=== PATIENT | female | born 1965 | race Caucasian/White ===

== ENCOUNTER 2021-04-27 08:21 | Day surgery (SDC) | payer OTHER ==
[2021-04-27] MEDS ORDERED: Decadron 4 MG INJ IV ONE (08:22)
[2021-04-27] MEDS ORDERED: LIDOCAINE HCL 2% 100 MG/5 ML IJ ONE (08:22)
[2021-04-27] MEDS ORDERED: DIPRIVAN 200 MG/20 ML IV ONE (09:57)
--- NOTE | 2021-04-27 11:27 | XRAY ---
Indication: Right C2-C4 MBB. Intraoperative fluoroscopy provided for 9 seconds. 2 digital spot images submitted for interpretation demonstrates posterior needle tips projecting over the expected right C2-C4 nerve roots. Correlate with intraoperative findings/report.
--- NOTE | 2021-04-27 13:01 | XRAY ---
9 seconds of fluoroscopy was used in surgery for right C2-C3 and C3-C4 MBB.
[2021-04-27] MEDS ORDERED: Lactated Ringers 1,000 ML IV ONE (15:39)
== END 2021-04-27 10:28 | disposition home or self-care (01) ==
LOC: SDC-PAIN 08:21
PROVIDERS: ATTEND Psychiatry & Neurology Pain Medicine
DX: M47.812 Spondylosis without myelopathy or radiculopathy, cervical region (principal); F41.9 Anxiety disorder, unspecified; F32.9 Major depressive disorder, single episode, unspecified; M19.90 Unspecified osteoarthritis, unspecified site; G43.909 Migraine, unspecified, not intractable, without status migrainosus; E11.9 Type 2 diabetes mellitus without complications; E78.5 Hyperlipidemia, unspecified; J44.9 Chronic obstructive pulmonary disease, unspecified; Z79.899 Other long term (current) drug therapy
CPT/HCPCS: 64490; 64491; 72040; 77002; J1100; J2704

== ENCOUNTER 2021-06-29 07:36 | Day surgery (SDC) | payer OTHER ==
[2021-06-29] MEDS ORDERED: Decadron 4 MG INJ IV ONE (07:37)
[2021-06-29] MEDS ORDERED: LIDOCAINE HCL 2% 100 MG/5 ML IJ ONE (07:37)
[2021-06-29] MEDS ORDERED: DIPRIVAN 200 MG/20 ML IV ONE (09:07)
--- NOTE | 2021-06-29 10:20 | XRAY ---
Indication: Left C2-C4 MBB. Intraoperative fluoroscopy provided for 44 seconds. 2 digital spot image submitted for interpretation demonstrates posterior needle tips projecting over the expected left C2-C4 nerve roots. Correlate with intraoperative findings/report.
--- NOTE | 2021-06-29 12:43 | XRAY ---
44 seconds of fluoroscopy was used in surgery for a left C2-C4 MBB.
[2021-06-29] MEDS ORDERED: Lactated Ringers 1,000 ML IV ONE (16:33)
== END 2021-06-29 09:45 | disposition home or self-care (01) ==
LOC: SDC-PAIN 07:36
PROVIDERS: ATTEND Psychiatry & Neurology Pain Medicine
DX: M47.812 Spondylosis without myelopathy or radiculopathy, cervical region (principal); E11.9 Type 2 diabetes mellitus without complications; Z79.899 Other long term (current) drug therapy
CPT/HCPCS: 72040; 77002; 82947; J1100; J2704

== ENCOUNTER 2021-09-14 06:44 | Day surgery (SDC) | payer OTHER ==
[2021-09-14] MEDS ORDERED: LIDOCAINE HCL 2% 100 MG/5 ML IJ ONE (06:45)
[2021-09-14] MEDS ORDERED: Depo-Medrol 40 MG/ML IM ONE (06:45)
[2021-09-14] MEDS ORDERED: DIPRIVAN 200 MG/20 ML IV ONE (08:13)
--- NOTE | 2021-09-14 10:19 | XRAY ---
Indication: Bilateral L4-S1 MBB. Intraoperative fluoroscopy provided for 15 seconds. Single digital spot image submitted for interpretation demonstrates posterior needle tips projecting over the expected left and right L4-S1 nerve roots. Correlate with intraoperative findings/report.
--- NOTE | 2021-09-14 10:33 | XRAY ---
15 seconds fluoroscopy time in surgery for bilateral L4-S1 MBB.
[2021-09-14] MEDS ORDERED: Lactated Ringers 1,000 ML IV ONE (17:23)
== END 2021-09-14 08:35 | disposition home or self-care (01) ==
LOC: SDC-PAIN 06:44
PROVIDERS: ATTEND Psychiatry & Neurology Pain Medicine
DX: M47.816 Spondylosis without myelopathy or radiculopathy, lumbar region (principal); F41.9 Anxiety disorder, unspecified; F32.9 Major depressive disorder, single episode, unspecified; I51.9 Heart disease, unspecified; G43.909 Migraine, unspecified, not intractable, without status migrainosus; E11.9 Type 2 diabetes mellitus without complications; G25.81 Restless legs syndrome; E78.5 Hyperlipidemia, unspecified; K21.9 Gastro-esophageal reflux disease without esophagitis; M19.90 Unspecified osteoarthritis, unspecified site; J44.9 Chronic obstructive pulmonary disease, unspecified; J43.8 Other emphysema; Z79.01 Long term (current) use of anticoagulants; Z79.899 Other long term (current) drug therapy
CPT/HCPCS: 64493; 64494; 72020; 77002; 82947; J1030; J2704

== ENCOUNTER 2021-11-30 07:00 | Day surgery (SDC) | payer OTHER ==
[2021-11-30] MEDS ORDERED: BUPIVACAINE 0.5% VIAL IJ ONE (07:01)
[2021-11-30] MEDS ORDERED: Depo-Medrol 40 MG/ML IM ONE (07:01)
[2021-11-30] MEDS ORDERED: DIPRIVAN 200 MG/20 ML IV ONE (08:38)
--- NOTE | 2021-11-30 09:51 | XRAY ---
Indication: Bilateral L4-S1 MBB. Intraoperative fluoroscopy provided for 22 seconds. Single digital spot image submitted for interpretation demonstrates posterior needle tips projecting over the expected left and right L4-S1 nerve roots. Correlate with intraoperative findings/report.
[2021-11-30] MEDS ORDERED: Lactated Ringers 1,000 ML IV ONE (10:01)
--- NOTE | 2021-11-30 11:07 | XRAY ---
22 seconds of fluoroscopy was used in surgery for a bilateral L4-S1 MBB.
== END 2021-11-30 09:06 | disposition home or self-care (01) ==
LOC: SDC-PAIN 07:00
PROVIDERS: ATTEND Psychiatry & Neurology Pain Medicine
DX: M47.816 Spondylosis without myelopathy or radiculopathy, lumbar region (principal); E11.9 Type 2 diabetes mellitus without complications; Z79.899 Other long term (current) drug therapy
CPT/HCPCS: 64483; 64484; 72020; 77002; 82947; J1030; J2704

== ENCOUNTER 2022-01-11 07:44 | Day surgery (SDC) | payer OTHER ==
[2022-01-11] MEDS ORDERED: BUPIVACAINE 0.5% VIAL IJ ONE (07:45)
[2022-01-11] MEDS ORDERED: Decadron 4 MG INJ IV ONE (07:45)
[2022-01-11] MEDS ORDERED: Lactated Ringers 1,000 ML IV ONE (09:02)
[2022-01-11] MEDS ORDERED: DIPRIVAN 200 MG/20 ML IV ONE (09:14)
--- NOTE | 2022-01-11 10:22 | XRAY ---
Indication: Left C2-C4 MBB. Intraoperative fluoroscopy provided for 36 seconds. 2 digital spot images submitted for interpretation demonstrates posterior needle tips projecting over the expected left C2-C4 nerve root. Correlate with intraoperative findings/report.
--- NOTE | 2022-01-11 10:33 | XRAY ---
36 seconds fluoroscopy time in surgery for left C2-C4 MBB.
== END 2022-01-11 09:45 | disposition home or self-care (01) ==
LOC: SDC-PAIN 07:44
PROVIDERS: ATTEND Psychiatry & Neurology Pain Medicine
DX: M47.812 Spondylosis without myelopathy or radiculopathy, cervical region (principal); E11.9 Type 2 diabetes mellitus without complications; Z79.899 Other long term (current) drug therapy
CPT/HCPCS: 64490; 64491; 72040; 77002; 82947; J1100; J2704

== ENCOUNTER 2022-04-12 15:18 | Observation (INO) | payer OTHER ==
[2022-04-12] MEDS ORDERED: DUONEB 0.5-3 MG/3 ml Neb IH ONE ×2 (15:22→15:36)
[2022-04-12] MEDS ORDERED: solu-MEDROL 125 MG, Sterile H2O 10 ml 2 ML IV ONE ×2 (15:22)
[2022-04-12] MEDS ORDERED: solu-MEDROL ONE (15:30)
[2022-04-12] MEDS ORDERED: Sterile H2O 10 ml IJ ONE (15:30)
[2022-04-12] MEDS: Sodium Chloride 0.9% 1000 ML 1,000 ML IV SCH (15:33)
--- NOTE | 2022-04-12 15:44 | ERPHSYRPT ---
- History of Present Illness Time Seen by Provider: 04/12/22 15:39 Source: patient Physician History: Patient is a 56-year-old white female who has a long history of COPD who is followed by Dr. Angelica puente. She has recently noticed extreme fatigue some peripheral edema increased oxygen requirement and that she normally only uses O2 at night with her CPAP but has been using it during the day as well. She also has noted increased cough she has had she chills fever and sweats she has had her COVID-vaccine she only takes rare nebulizer treatments. She has taken none in the past month or so.While at Dr. Dominguez's office today she initially measured 82% on room air O2 sat she was being weighed when she had a syncopal episode. Timing/Duration: today Activities at Onset: none Severity of Dyspnea-Max: severe Severity of Dyspnea-Current: severe Possible Cause: frequent episodes Modifying Factors: Improves With: albuterol nebulizer, coughing, oxygen Associated Symptoms: cough, edema, fever, wheezing, ankle swelling, chills, leg swelling Allergies/Adverse Reactions: bee venom protein (honey bee) Allergy (Verified 04/12/22 15:42) benztropine [From Cogentin] Allergy (Verified 04/12/22 15:42) Home Medications: Albuterol Common Canister [Ventolin Common Canister] 2 puff IH Q6HPRN PRN 04/12/22 [History] Apixaban [Eliquis 5 mg Tablet] 5 mg PO BID 04/12/22 [History] Diphenoxylate HCl/Atropine [Lomotil] 1 udtab PO Q4HPRN PRN 04/12/22 [Hi story] Ertugliflozin Pidolate [Steglatro] 5 mg PO DAILY 04/12/22 [History] Fluoxetine HCl [Prozac] 10 mg PO DAILY 04/12/22 [History] Fluoxetine HCl [Prozac] 40 mg PO DAILY 04/12/22 [History] Fluticasone Propionate [Flonase NASAL] 1 spray NS DAILY 04/12/22 [History] Fluticasone/Umeclidin/Vilanter [Trelegy Ellipta 100-62.5-25] 1 puff IH DAILY 04/12/22 [History] Fluticasone/Umeclidin/Vilanter [Trelegy Ellipta 100-62.5-25] 1 puff IH DAILY 04/12/22 [History] Gabapentin [Neurontin] 600 mg PO TID 04/12/22 [History] Glipizide [Glipizide ER] 10 mg PO DAILY 04/12/22 [History] Hydroxyzine HCl 25 mg [Atarax 25 mg] 25 - 50 mg PO Q6HPRN PRN 04/12/22 [History] Insulin Glargine [Lantus Insulin] 15 unit SQ HS 04/12/22 [History] Loratadine 10 mg [Claritin 10 mg] 10 mg PO DAILY 04/12/22 [History] Lumateperone Tosylate [Caplyta] 42 mg PO DAILY 04/12/22 [History] Oxycodone / APAP 10/325 mg [Oxycodone-Acetaminophen 10-325] 1 tab PO BID 04/12/22 [History] Ropinirole HCl 3 mg PO HS 04/12/22 [History] Tizanidine HCl 4 mg [Zanaflex 4 MG] 4 mg PO DAILY 04/12/22 [History] Trazodone HCl 150 mg PO HS 04/12/22 [History] atenoloL [Atenolol] 25 mg PO DAILY 04/12/22 [History] - Review of Systems Constitutional: Fever, Chills, Fatigue, Lethargy Eyes: No Symptoms Ears, Nose, & Throat: No Symptoms Respiratory: Cough, Dyspnea, Dyspnea on Exertion (CASAS), Wheezing Cardiac: Edema, No Chest Pain, No Syncope Abdominal/Gastrointestinal: No Abdominal Pain, No Nausea, No Vomiting, No Diarrhea Genitourinary Symptoms: No Dysuria Musculoskeletal: No Back Pain, No Neck Pain Skin: No Rash Neurological: No Dizziness, No Focal Weakness, No Sensory Changes Psychological: No Symptoms Endocrine: No Symptoms All Other Systems: Reviewed and Negative - Nursing Vital Signs Nursing Vital Signs: Initial Vital Signs Temperature 98.6 F 04/12/22 15:20 Pulse Rate 80 04/12/22 15:20 Respiratory Rate 24 04/12/22 15:20 Blood Pressure 112/73 04/12/22 15:20 O2 Sat by Pulse Oximetry 90 L 04/12/22 15:20 Pain Scale Pain Intensity 0 - Physical Exam General Appearance: moderate distress, alert Eye Exam: PERRL/EOMI Ears, Nose, Throat Exam: normal ENT inspection Neck Exam: normal inspection, supple Respiratory Exam: respiratory distress, diminished breath sounds, crackles/rales, rhonchi, wheezing Cardiovascular/Chest Exam: normal heart sounds, regular rate/rhythm Abdominal/Gastrointestinal Exam: soft, No tenderness, No distention, No mass Extremity Exam: non-tender, normal range of motion, normal inspection, no calf tenderness, no pedal edema Neurologic Exam: alert, oriented x 3, cooperative, drum attendant II-XII nml as tested, sensation nml, No motor deficits Skin Exam: normal color, warm, No dry SpO2 Interpretation: hypoxic, O2 applied O2 Delivery: Nasal Cannula - Course Nursing assessment & vital signs reviewed: Yes EKG Interpreted by Me: RATE (80), Sinus Rhythm, Left [place] Deviation, NORMAL INTERVALS, NORMAL QRS, Non-specific ST Changes, Other (Poor R wave progression) - Radiology Exams Chest X-ray Interpretation: Interpreted by me, Pneumonia (Right lower lobe) Ordered Tests: Active Orders 24 hr Category Date Time Status EKG-ER Only STAT Care 04/12/22 15:22 Active IV Insertion STAT Care 04/12/22 15:22 Active Oxygen-ED Only Nasal Cannula 4 lpm Care 04/12/22 15:22 Active CHEST 1 VIEW (PORTABLE) Stat Exams 04/12/22 15:23 Completed BLOOD CULTURE Stat Lab 04/12/22 15:55 Received CBC W DIFF Stat Lab 04/12/22 15:55 Completed CMP Stat Lab 04/12/22 15:55 Completed D-DIMER QUANTITATIVE Stat Lab 04/12/22 15:55 Completed Lactic Acid Stat Lab 04/12/22 15:39 Completed MAGNESIUM Stat Lab 04/12/22 15:55 Completed NT PRO BNP Stat Lab 04/12/22 15:55 Completed PROTIME WITH INR Stat Lab 04/12/22 15:55 Completed PTT Stat Lab 04/12/22 15:55 Completed TROPONIN Q3H Lab 04/12/22 15:55 Completed TROPONIN Q3H Lab 04/12/22 18:30 Ordered TROPONIN Q3H Lab 04/12/22 21:30 Ordered TROPONIN Q3H Lab 04/13/22 00:30 Ordered TROPONIN Q3H Lab 04/13/22 03:30 Ordered UA W/RFX CULTURE Stat Lab 04/12/22 17:09 Results Respiratory Therapy Assessment DAILY RT 04/12/22 16:02 Active Medication Summary Generic Name Dose Route Start Last Admin Trade Name Freramo PRN Reason Stop Dose Admin Albuterol/Ipratropium 3 ml 04/12/22 15:57 04/12/22 15:37 Ipratropium/Albuterol Sulfate 3 Ml Ampul.Neb IH 05/12/22 15:56 3 ml Q4HPRN PRN Administration SHORTNESS OF BREATH/WHEEZING Sodium Chloride 1,000 mls @ 100 mls/hr 04/12/22 15:30 04/12/22 15:33 Sodium Chloride 0.9% 1000 Ml IV 05/12/22 15:29 100 mls/hr .Q10H CLIFF Administration Discontinued Medications Generic Name Dose Route Start Last Admin Trade Name Freq PRN Reason Stop Dose Admin Albuterol/Ipratropium 3 ml 04/12/22 15:22 04/12/22 16:59 Ipratropium/Albuterol Sulfate 3 Ml Ampul.Neb IH 04/12/22 15:23 Not Given STAT ONE Albuterol/Ipratropium Confirm 04/12/22 15:36 Ipratropium/Albuterol Sulfate 3 Ml Ampul.Neb Administered 04/12/22 15:37 Dose 3 ml IH .STK-MED ONE Methylprednisolone Sodium 0 mg 04/12/22 15:22 04/12/22 15:33 Succinate 125 mg/ Sterile IV 04/12/22 15:23 125 mg Water 2 ml STAT ONE Administration Methylprednisolone Sodium Succinate Confirm 04/12/22 15:30 Methylprednis Sod Succ 125 Mg/2 Ml Vial Administered 04/12/22 15:31 Dose 125 mg .ROUTE .STK-MED ONE Sterile Water Confirm 04/12/22 15:30 Water For Injection,Sterile 10 Ml Vial Administered 04/12/22 15:31 Dose 10 ml IJ .STK-MED ONE Lab/Rad Data: Laboratory Result Diagrams 04/12/22 15:55 04/12/22 15:55 Laboratory Results 04/12/22 04/12/22 04/12/22 Range/Units 17:09 15:55 15:55 WBC (4.0-10.5) x10^3/uL RBC (4.1-5.4) x10^6/uL Hgb (12.0-16.0) g/dL Hct (35-47) % MCV (78-100) fL MCH (26-32) pg MCHC (32-36) g/dL RDW (11.5-14.0) % Plt Count (150-450) x10^3/uL MPV (7.5-11.0) fL Gran % (36.0-66.0) % Immature Gran % (Auto) (0.00-0.4) % Nucleat RBC Rel Count (0.00-0.1) % Eos # (Auto) (0-0.5) x10^3/uL Immature Gran # (Auto) (0.00-0.03) x10^3u/L Absolute Lymphs (auto) (1.0-4.6) x10^3/uL Absolute Monos (auto) (0.0-1.3) x10^3/uL Absolute Nucleated RBC (0.00-0.01) x10^3u/L Lymphocytes % (24.0-44.0) % Monocytes % (0.0-12.0) % Eosinophils % (0.00-5.0) % Basophils % (0.0-0.4) % Absolute Granulocytes (1.4-6.9) x10^3/uL Basophils # (0-0.4) x10^3/uL PT 10.4 (9.4-12.5) SECONDS INR 0.98 (0.8-3.0) APTT 27.9 (25.1-36.5) SECONDS D-Dimer 0.37 (0.0-0.50) ng/mL Sodium (137-145) mmol/L Potassium (3.5-5.1) mmol/L Chloride (98-107) mmol/L Carbon Dioxide (22-30) mmol/L Anion Gap (5-15) MEQ/L BUN (7-17) mg/dL Creatinine (0.52-1.04) mg/dL Estimated GFR ML/MIN Glucose (74-106) mg/dL Lactic Acid (0.4-2.0) Calcium (8.4-10.2) mg/dL Magnesium (1.6-2.3) mg/dL Total Bilirubin (0.2-1.3) mg/dL AST (14-36) U/L ALT (0-35) U/L Alkaline Phosphatase (38-126) U/L Troponin I < 0.012 (0.000-0.034) ng/mL NT-Pro-B Natriuret Pep (0-900) pg/mL Serum Total Protein (6.3-8.2) g/dL Albumin (3.5-5.0) g/dL Urinalys Dipstick Clnc Pending Urine Color YELLOW (YELLOW) Urine Appearance CLEAR (CLEAR) Urine pH 6.0 (5-6) Ur Specific [place] 1.020 (1.005-1.025) POC Urine Protein Conf NEGATIVE (Negative) Urine Ketones TRACE (NEGATIVE) Urine Nitrite NEGATIVE (NEGATIVE) Urine Bilirubin NEGATIVE (NEGATIVE) Urine Urobilinogen 0.2 (0-1) mg/dL Urine Leukocytes NEGATIVE (NEGATIVE) Urine WBC (Auto) NONE (0-5) /HPF U Epithel Cells (Auto) RARE (FEW) /HPF Urine RBC NEGATIVE (0-5) Juan/ul Ur Culture Indicated? NO Urine Glucose >=1000 (NEGATIVE) mg/dL Influenza Type A Ag (NEGATIVE) Influenza Type B Ag (NEGATIVE) RSV (PCR) (Negative) SARS-CoV-2 (PCR) (NEGATIVE) 04/12/22 04/12/22 04/12/22 Range/Units 15:55 15:55 15:50 WBC 14.1 H (4.0-10.5) x10^3/uL RBC 5.52 H (4.1-5.4) x10^6/uL Hgb 17.3 H (12.0-16.0) g/dL Hct 52.9 H (35-47) % MCV 95.8 (78-100) fL MCH 31.3 (26-32) pg MCHC 32.7 (32-36) g/dL RDW 13.6 (11.5-14.0) % Plt Count 225 (150-450) x10^3/uL MPV 9.6 (7.5-11.0) fL Gran % 68.3 H (36.0-66.0) % Immature Gran % (Auto) 0.4 (0.00-0.4) % Nucleat RBC Rel Count 0.0 (0.00-0.1) % Eos # (Auto) 0.17 (0-0.5) x10^3/uL Immature Gran # (Auto) 0.06 H (0.00-0.03) x10^3u/L Absolute Lymphs (auto) 3.07 (1.0-4.6) x10^3/uL Absolute Monos (auto) 1.10 (0.0-1.3) x10^3/uL Absolute Nucleated RBC 0.00 (0.00-0.01) x10^3u/L Lymphocytes % 21.8 L (24.0-44.0) % Monocytes % 7.8 (0.0-12.0) % Eosinophils % 1.2 (0.00-5.0) % Basophils % 0.5 (0.0-0.4) % Absolute Granulocytes 9.61 H (1.4-6.9) x10^3/uL Basophils # 0.07 (0-0.4) x10^3/uL PT (9.4-12.5) SECONDS INR (0.8-3.0) APTT (25.1-36.5) SECONDS D-Dimer (0.0-0.50) ng/mL Sodium 138 (137-145) mmol/L Potassium 4.0 (3.5-5.1) mmol/L Chloride 103 (98-107) mmol/L Carbon Dioxide 28 (22-30) mmol/L Anion Gap 10.8 (5-15) MEQ/L BUN 12 (7-17) mg/dL Creatinine 0.64 (0.52-1.04) mg/dL Estimated GFR > 60.0 ML/MIN Glucose 102 (74-106) mg/dL Lactic Acid (0.4-2.0) Calcium 9.2 (8.4-10.2) mg/dL Magnesium 2.1 (1.6-2.3) mg/dL Total Bilirubin 0.50 (0.2-1.3) mg/dL AST 18 (14-36) U/L ALT 11 (0-35) U/L Alkaline Phosphatase 75 (38-126) U/L Troponin I (0.000-0.034) ng/mL NT-Pro-B Natriuret Pep 67.5 (0-900) pg/mL Serum Total Protein 6.8 (6.3-8.2) g/dL Albumin 3.8 (3.5-5.0) g/dL Urinalys Dipstick Clnc Urine Color (YELLOW) Urine Appearance (CLEAR) Urine pH (5-6) Ur Specific [place] (1.005-1.025) POC Urine Protein Conf (Negative) Urine Ketones (NEGATIVE) Urine Nitrite (NEGATIVE) Urine Bilirubin (NEGATIVE) Urine Urobilinogen (0-1) mg/dL Urine Leukocytes (NEGATIVE) Urine WBC (Auto) (0-5) /HPF U Epithel Cells (Auto) (FEW) /HPF Urine RBC (0-5) Juan/ul Ur Culture Indicated? Urine Glucose (NEGATIVE) mg/dL Influenza Type A Ag NEGATIVE (NEGATIVE) Influenza Type B Ag NEGATIVE (NEGATIVE) RSV (PCR) NEGATIVE (Negative) SARS-CoV-2 (PCR) NEGATIVE (NEGATIVE) 04/12/22 Range/Units 15:39 WBC (4.0-10.5) x10^3/uL RBC (4.1-5.4) x10^6/uL Hgb (12.0-16.0) g/dL Hct (35-47) % MCV (78-100) fL MCH (26-32) pg MCHC (32-36) g/dL RDW (11.5-14.0) % Plt Count (150-450) x10^3/uL MPV (7.5-11.0) fL Gran % (36.0-66.0) % Immature Gran % (Auto) (0.00-0.4) % Nucleat RBC Rel Count (0.00-0.1) % Eos # (Auto) (0-0.5) x10^3/uL Immature Gran # (Auto) (0.00-0.03) x10^3u/L Absolute Lymphs (auto) (1.0-4.6) x10^3/uL Absolute Monos (auto) (0.0-1.3) x10^3/uL Absolute Nucleated RBC (0.00-0.01) x10^3u/L Lymphocytes % (24.0-44.0) % Monocytes % (0.0-12.0) % Eosinophils % (0.00-5.0) % Basophils % (0.0-0.4) % Absolute Granulocytes (1.4-6.9) x10^3/uL Basophils # (0-0.4) x10^3/uL PT (9.4-12.5) SECONDS INR (0.8-3.0) APTT (25.1-36.5) SECONDS D-Dimer (0.0-0.50) ng/mL Sodium (137-145) mmol/L Potassium (3.5-5.1) mmol/L Chloride (98-107) mmol/L Carbon Dioxide (22-30) mmol/L Anion Gap (5-15) MEQ/L BUN (7-17) mg/dL Creatinine (0.52-1.04) mg/dL Estimated GFR ML/MIN Glucose (74-106) mg/dL Lactic Acid 0.8 (0.4-2.0) Calcium (8.4-10.2) mg/dL Magnesium (1.6-2.3) mg/dL Total Bilirubin (0.2-1.3) mg/dL AST (14-36) U/L ALT (0-35) U/L Alkaline Phosphatase (38-126) U/L Troponin I (0.000-0.034) ng/mL NT-Pro-B Natriuret Pep (0-900) pg/mL Serum Total Protein (6.3-8.2) g/dL Albumin (3.5-5.0) g/dL Urinalys Dipstick Clnc Urine Color (YELLOW) Urine Appearance (CLEAR) Urine pH (5-6) Ur Specific [place] (1.005-1.025) POC Urine Protein Conf (Negative) Urine Ketones (NEGATIVE) Urine Nitrite (NEGATIVE) Urine Bilirubin (NEGATIVE) Urine Urobilinogen (0-1) mg/dL Urine Leukocytes (NEGATIVE) Urine WBC (Auto) (0-5) /HPF U Epithel Cells (Auto) (FEW) /HPF Urine RBC (0-5) Juan/ul Ur Culture Indicated? Urine Glucose (NEGATIVE) mg/dL Influenza Type A Ag (NEGATIVE) Influenza Type B Ag (NEGATIVE) RSV (PCR) (Negative) SARS-CoV-2 (PCR) (NEGATIVE) - Progress Progress: unchanged Air Movement: fair Blood Culture(s) Obtained: Yes Antibiotics given: Yes Discussed with : Karla Will see patient in: hospital (observation) - Departure Departure Disposition: Observation Clinical Impression: Right lower lobe pneumonia, Syncope Condition: Stable Critical Care Time: No Referrals: TRISH CALVIN, [facility] [Primary Care Provider] - Follow up/PCP as directed
[2022-04-12] MEDS ORDERED: DUONEB 0.5-3 MG/3 ml Neb IH PRN (15:57)
[2022-04-12 16:12] LABS: Absolute Neutrophil Ct (ANC) 9.61 x10^3/uL (1.4-6.9); Basophil (Absolute #) 0.07 x10^3/uL (0-0.4); Eosinophil % 1.2 % (0.00-5.0); Eosinophil (Absolute #) 0.17 x10^3/uL (0-0.5); Hematocrit 52.9 % (35-47); Hemoglobin 17.3 g/dL (12.0-16.0); Lymphocyte (Absolute #) 3.07 x10^3/uL (1.0-4.6); Lymphocytes % 21.8 % (24.0-44.0); Mean Cell Volume 95.8 fL (78-100); Mean Corpuscular Hemoglobin 31.3 pg (26-32); Mean Corpuscular Hgb Concent. 32.7 g/dL (32-36); Mean Platelet Volume 9.6 fL (7.5-11.0); Monocytes % 7.8 % (0.0-12.0); Neutrophil % 68.3 % (36.0-66.0); Platelet Count 225 x10^3/uL (150-450); Red Blood Count 5.52 x10^6/uL (4.1-5.4); Red Cell Distribution Width 13.6 % (11.5-14.0); White Blood Count 14.1 x10^3/uL (4.0-10.5)
[2022-04-12 16:19] LABS: D-DIMER QUANTITATIVE 0.37 ng/mL (0.0-0.50); INR 0.98 (0.8-3.0); PROTIME 10.4 SECONDS (9.4-12.5); PTT 27.9 SECONDS (25.1-36.5)
--- NOTE | 2022-04-12 16:37 | XRAY ---
Indication: Fever, cough, and short of breath. Comparison: None Portable chest demonstrates diffuse bilateral nonspecific interstitial lung markings without focal infiltrate, consolidation, or large effusion. Heart not enlarged. Bony thorax intact with mild osteopenia and old left humeral neck fracture.
[2022-04-12 16:45] LABS: INFLUENZA A NEGATIVE (NEGATIVE); INFLUENZA B NEGATIVE (NEGATIVE); RESPIRATORY SYNCTIAL VIRUS NEGATIVE (Negative); SARS-CoV-2 Xpert Express NEGATIVE (NEGATIVE)
[2022-04-12 17:43] LABS: ALBUMIN 3.8 g/dL (3.5-5.0); ALKALINE PHOSPHATASE 75 U/L (38-126); ANION GAP 10.8 MEQ/L (5-15); BLOOD UREA NITROGEN 12 mg/dL (7-17); CHLORIDE 103 mmol/L (98-107); Calcium 9.2 mg/dL (8.4-10.2); Carbon Dioxide 28 mmol/L (22-30); Creatinine 1 0.64 mg/dL (0.52-1.04); EST GLOMERULAR FILTRATION RATE > 60.0 ML/MIN; Glucose 102 mg/dL (74-106); MAGNESIUM 2.1 mg/dL (1.6-2.3); NT PRO BNP 67.5 pg/mL (0-900); SGOT/AST 18 U/L (14-36); SGPT/ALT 11 U/L (0-35); SODIUM 138 mmol/L (137-145); Total Protein 6.8 g/dL (6.3-8.2)
[2022-04-12 17:48] LABS: Epithelial Cells RARE /HPF (FEW)
[2022-04-12 17:57] LABS: Appearance CLEAR (CLEAR); Bilirubin NEGATIVE (NEGATIVE); Glucose >=1000 mg/dL (NEGATIVE); Ketones TRACE (NEGATIVE); Protein,Urine Dip NEGATIVE (Negative); RBC NEGATIVE Ery/ul (0-5); Urobilinogen 0.2 mg/dL (0-1)
[2022-04-12 17:58] LABS: Nitrite NEGATIVE (NEGATIVE); Urine Cultured Indicated? NO
[2022-04-12] MEDS ORDERED: ROCEPHIN 1 Gm-D5w 50 ml Bag** 1 G/50 ML IVPB IV STA (18:01)
[2022-04-12] MEDS ORDERED: Zithromax 500 MG/ 250 ML NaCl Premix 500 MG/250 ML IVPB IV ONE ×2 (18:02→19:07)
[2022-04-12 18:03] LABS: Dipstick done @ ? MAIN LAB
[2022-04-12] MEDS ORDERED: ROCEPHIN 1 Gm-D5w 50 ml Bag** 1 G/50 ML IVPB IV ONE (18:31)
[2022-04-12] MEDS ORDERED: NEURONTIN PO ONE (22:32)
[2022-04-12] MEDS ORDERED: ELIQUIS 2.5 MG TABLET PO ONE (22:32)
[2022-04-12] MEDS ORDERED: Lantus Insulin SQ ONE (22:33)
[2022-04-12] MEDS ORDERED: Desyrel 150 MG PO ONE (22:37)
[2022-04-12] MEDS ORDERED: REQUIP 2MG TAB PO ONE (22:39)
[2022-04-13] MEDS ORDERED: solu-MEDROL ONE ×2 (00:07→04:46)
[2022-04-13] MEDS: solu-MEDROL 60 MG, Sterile H2O 10 ml 2 ML IV SCH ×6 (00:12→12:10)
[2022-04-13] MEDS: Sodium Chloride 0.9% 1000 ML 1,000 ML IV SCH (02:25)
[2022-04-13] MEDS ORDERED: OXYCODONE-ACETAMINOPHEN 10-325 PO ONE ×2 (05:26→05:32)
[2022-04-13] MEDS ORDERED: Nicoderm CQ 21 MG TOP SCH ×2 (05:30→22:00)
[2022-04-13 05:43] LABS: Hematocrit 52.6 % (35-47); Hemoglobin 17.1 g/dL (12.0-16.0); Mean Corpuscular Hemoglobin 31.2 pg (26-32); Mean Corpuscular Hgb Concent. 32.5 g/dL (32-36); Mean Platelet Volume 9.9 fL (7.5-11.0); Platelet Count 231 x10^3/uL (150-450); Red Blood Count 5.48 x10^6/uL (4.1-5.4); Red Cell Distribution Width 13.6 % (11.5-14.0); White Blood Count 11.6 x10^3/uL (4.0-10.5)
[2022-04-13 06:14] LABS: ALBUMIN 3.6 g/dL (3.5-5.0); ALKALINE PHOSPHATASE 70 U/L (38-126); ANION GAP 16.4 MEQ/L (5-15); BLOOD UREA NITROGEN 14 mg/dL (7-17); CHLORIDE 107 mmol/L (98-107); Carbon Dioxide 22 mmol/L (22-30); Creatinine 1 0.46 mg/dL (0.52-1.04); EST GLOMERULAR FILTRATION RATE > 60.0 ML/MIN; Glucose 207 mg/dL (74-106); MAGNESIUM 2.2 mg/dL (1.6-2.3); Potassium 4.4 mmol/L (3.5-5.1); SGOT/AST 16 U/L (14-36); SGPT/ALT 10 U/L (0-35); SODIUM 140 mmol/L (137-145); Total Protein 6.4 g/dL (6.3-8.2)
[2022-04-13] MEDS ORDERED: Advair Hfa 115/21 Common canister IH SCH (07:00)
[2022-04-13] MEDS ORDERED: HUMALOG SQ PRN (09:00)
[2022-04-13] MEDS ORDERED: ATARAX 25 MG PO PRN (09:06)
[2022-04-13] MEDS ORDERED: OXYCODONE-ACETAMINOPHEN 10-325 PO PRN (09:06)
[2022-04-13] MEDS ORDERED: Lomotil PO PRN (09:06)
[2022-04-13] MEDS: NEURONTIN PO SCH ×2 (09:30→14:23)
[2022-04-13] MEDS ORDERED: MEDICATION INTERVENTION MC SCH ×2 (09:30)
[2022-04-13] MEDS ORDERED: FLUOXETINE HCL 10 MG PO SCH (10:00)
[2022-04-13] MEDS ORDERED: Prozac 20 MG PO SCH (10:00)
[2022-04-13] MEDS ORDERED: Zithromax 500 MG/ 250 ML NaCl Premix 500 MG/250 ML IVPB IV SCH (10:00)
[2022-04-13] MEDS ORDERED: Zithromax 250 MG TABLET PO SCH (10:00)
[2022-04-13] MEDS ORDERED: NON-FORMULARY ITEM (Atenolol [Atenolol] 25 MG Tablet) PO SCH (10:00)
[2022-04-13] MEDS ORDERED: TENORMIN 50 MG PO SCH (10:00)
[2022-04-13] MEDS ORDERED: PROZAC 10 MG PO SCH (10:00)
[2022-04-13] MEDS ORDERED: NON-FORMULARY ITEM (Fluoxetine Hcl [Prozac] 40 MG Capsule) PO SCH (10:00)
[2022-04-13] MEDS ORDERED: ERTUGLIFLOZIN PIDOLATE 5 MG PO SCH (10:00)
[2022-04-13] MEDS ORDERED: NON-FORMULARY ITEM (Apixaban*** [Eliquis 5 Mg Tablet***] 5 MG Tablet) PO SCH (10:00)
[2022-04-13] MEDS ORDERED: CLARITIN 10 MG PO SCH (10:00)
[2022-04-13] MEDS ORDERED: Flonase NASAL NS SCH (10:00)
[2022-04-13] MEDS ORDERED: ROCEPHIN 1 Gm-D5w 50 ml Bag** 1 G/50 ML IVPB IV SCH (10:00)
[2022-04-13] MEDS ORDERED: PATIENT OWN MEDICATION PO SCH ×2 (10:00→22:00)
[2022-04-13] MEDS ORDERED: NON-FORMULARY ITEM (Gabapentin [Neurontin] 600 MG Tablet) PO SCH (10:00)
[2022-04-13] MEDS ORDERED: ELIQUIS 2.5 MG TABLET PO SCH (10:00)
[2022-04-13] MEDS ORDERED: Zanaflex 4 MG PO SCH (10:00)
[2022-04-13] MEDS ORDERED: NON-FORMULARY ITEM (Fluticasone/Umeclidin/Vilanter [Trelegy Ellipta 100-62.5-25] 1 EACH Bl IH SCH (10:00)
[2022-04-13 12:13] VITALS: O2SAT 94
[2022-04-13 16:21] VITALS: BP 127/58; PULSE 64
[2022-04-13] MEDS ORDERED: NON-FORMULARY ITEM (Lumateperone Tosylate [Caplyta] 42 MG Capsule) PO SCH (22:00)
[2022-04-13] MEDS ORDERED: REQUIP 2MG TAB PO SCH (22:00)
[2022-04-13] MEDS ORDERED: Desyrel 150 MG PO SCH (22:00)
[2022-04-13] MEDS ORDERED: NON-FORMULARY ITEM (Ropinirole Hcl [Ropinirole Hcl] 3 MG Tablet) PO SCH (22:00)
[2022-04-13] MEDS ORDERED: Lantus Insulin SQ SCH (22:00)
[2022-04-14] MEDS ORDERED: Zithromax 250 MG TABLET PO SCH (10:00)
== END 2022-04-13 16:49 | disposition home or self-care (01) ==
LOC: ED 15:18 → MED SURG 20:30
PROVIDERS: ADMIT Family Medicine; ATTEND Family Medicine
DX: J44.1 Chronic obstructive pulmonary disease with (acute) exacerbation (principal); R55 Syncope and collapse; Z99.81 Dependence on supplemental oxygen; Z79.899 Other long term (current) drug therapy; Z20.828 Contact with and (suspected) exposure to other viral communicable diseases
CPT/HCPCS: 0241U; 36000; 36415; 71045; 80053; 81015; 82947; 83605; 83735; 83880; 84484; 85025; 85027; 85379; 85610; 85730; 87040; 93005; 93268; 94002; 94640; 94762; 96365; 96374; 99285; G0378; J0456; J0696; J1817; J2930; A9270-GY

== ENCOUNTER 2022-08-23 08:08 | Day surgery (SDC) | payer OTHER ==
[2022-08-23] MEDS ORDERED: XYLOCAINE-MPF 1% 5ML SDV IJ ONE (08:09)
[2022-08-23] MEDS ORDERED: Depo-Medrol 40 MG/ML IM ONE (08:09)
[2022-08-23] MEDS ORDERED: Marcaine Mpf 0.5% Vial 30 Ml IJ ONE (08:09)
[2022-08-23] MEDS ORDERED: DIPRIVAN 200 MG/20 ML IV ONE (10:04)
[2022-08-23] MEDS ORDERED: Lactated Ringers 1,000 ML IV ONE (10:18)
--- NOTE | 2022-08-23 11:26 | XRAY ---
Indication: Left L4-S1 RFA. Intraoperative fluoroscopy provided for 26 seconds. 3 digital spot image submitted for interpretation demonstrates posterior needle tips projecting over the expected left L4-S1 nerve roots. Correlate with intraoperative findings/report.
--- NOTE | 2022-08-23 13:23 | XRAY ---
26 seconds of fluoroscopy was used in surgery for a left L4-S1 RFA.
== END 2022-08-23 10:40 | disposition home or self-care (01) ==
LOC: SDC-PAIN 08:08
PROVIDERS: ATTEND Psychiatry & Neurology Pain Medicine
DX: M47.816 Spondylosis without myelopathy or radiculopathy, lumbar region (principal); E11.9 Type 2 diabetes mellitus without complications; Z79.899 Other long term (current) drug therapy
CPT/HCPCS: 64635; 64636; 72100; 77002; 82947; J1030; J2704

== ENCOUNTER 2022-09-06 08:22 | Day surgery (SDC) | payer OTHER ==
[2022-09-06] MEDS ORDERED: Depo-Medrol 40 MG/ML IM ONE (08:23)
[2022-09-06] MEDS ORDERED: Xylocaine 1% Vial 30 ML PF IJ ONE (08:23)
[2022-09-06] MEDS ORDERED: Marcaine Mpf 0.5% Vial 30 Ml IJ ONE (08:23)
[2022-09-06] MEDS ORDERED: DIPRIVAN 200 MG/20 ML IV ONE (10:17)
[2022-09-06] MEDS ORDERED: Lactated Ringers 1,000 ML IV ONE (12:24)
--- NOTE | 2022-09-06 12:41 | XRAY ---
Indication: Right L4-S1 RFA. Intraoperative fluoroscopy provided for 28 seconds. 5 digital spot image submitted for interpretation demonstrates posterior needle tips projecting over the expected right L4-S1 nerve roots. Correlate with intraoperative findings/report.
--- NOTE | 2022-09-06 14:25 | XRAY ---
28 seconds fluoroscopy time in surgery for right L4-S1 RFA.
== END 2022-09-06 10:50 | disposition home or self-care (01) ==
LOC: SDC-PAIN 08:22
PROVIDERS: ATTEND Psychiatry & Neurology Pain Medicine
DX: M47.816 Spondylosis without myelopathy or radiculopathy, lumbar region (principal); E11.9 Type 2 diabetes mellitus without complications; Z79.899 Other long term (current) drug therapy
CPT/HCPCS: 64635; 64636; 72100; 77002; J1030; J2001; J2704

== ENCOUNTER 2023-01-31 06:57 | Day surgery (SDC) | payer OTHER ==
[2023-01-31] MEDS ORDERED: Depo-Medrol 40 MG/ML IM ONE (06:58)
[2023-01-31] MEDS ORDERED: Sodium Chloride 0.9(Preservative Free) 10 ML IJ ONE (06:58)
[2023-01-31] MEDS ORDERED: DIPRIVAN 200 MG/20 ML IV ONE (08:07)
[2023-01-31] MEDS ORDERED: Xylocaine-Mpf 2% 5 Ml Vial ONE (08:17)
--- NOTE | 2023-01-31 09:33 | XRAY ---
Indication: Right L4-S1 transforaminal JAVAD. Intraoperative fluoroscopy provided for 28 seconds. 3 digital spot images submitted for interpretation demonstrates posterior needle tips projecting over the expected right L4 and L5 nerve roots. Small amount of contrast injected for needle tip placement. Correlate with intraoperative findings/report.
--- NOTE | 2023-01-31 10:23 | XRAY ---
28 seconds of fluoroscopy was used in surgery for a right L4-S1 transforaminal JAVAD.
[2023-01-31] MEDS ORDERED: Lactated Ringers 1,000 ML IV ONE (10:34)
== END 2023-01-31 08:40 | disposition home or self-care (01) ==
LOC: SDC-PAIN 06:57
PROVIDERS: ATTEND Psychiatry & Neurology Pain Medicine
DX: M54.16 Radiculopathy, lumbar region (principal); E11.9 Type 2 diabetes mellitus without complications; Z79.899 Other long term (current) drug therapy
CPT/HCPCS: 64483; 64484; 72100; 77003; 82947; J1030; J2704; Q9966

== ENCOUNTER 2023-03-14 07:48 | Day surgery (SDC) | payer OTHER ==
[2023-03-14] MEDS ORDERED: BUPIVACAINE 0.5% VIAL IJ ONE (07:49)
[2023-03-14] MEDS ORDERED: Depo-Medrol 40 MG/ML IM ONE (07:49)
[2023-03-14] MEDS ORDERED: Versed 2 MG/2 ML Injection ONE (08:40)
[2023-03-14] MEDS ORDERED: DIPRIVAN 200 MG/20 ML IV ONE (08:55)
--- NOTE | 2023-03-14 12:32 | XRAY ---
Indication: Right knee injection. Intraoperative fluoroscopy provided for 6 seconds. Single digital spot images submitted for interpretation demonstrates needle tip projecting over the right femur intercondylar notch. Small amount of contrast injected for needle tip placement. Correlate with intraoperative findings/report.
--- NOTE | 2023-03-14 12:41 | XRAY ---
6 seconds of fluoroscopy was used in surgery for a right intra-articular knee injection.
[2023-03-14] MEDS ORDERED: Lactated Ringers 1,000 ML IV ONE (13:51)
== END 2023-03-14 09:15 | disposition home or self-care (01) ==
LOC: SDC-PAIN 07:48
PROVIDERS: ATTEND Psychiatry & Neurology Pain Medicine
DX: M17.11 Unilateral primary osteoarthritis, right knee (principal); E11.9 Type 2 diabetes mellitus without complications; Z79.899 Other long term (current) drug therapy
CPT/HCPCS: 20610; 73560; 77002; 82947; J1030; J2250; J2704; Q9966

== ENCOUNTER 2023-04-25 07:37 | Day surgery (SDC) | payer OTHER ==
[2023-04-25] MEDS ORDERED: Depo-Medrol 40 MG/ML IM ONE (07:38)
[2023-04-25] MEDS ORDERED: BUPIVACAINE 0.5% VIAL IJ ONE (07:38)
[2023-04-25] MEDS ORDERED: DIPRIVAN 200 MG/20 ML IV ONE (09:35)
[2023-04-25] MEDS ORDERED: Lactated Ringers 1,000 ML IV ONE (14:27)
== END 2023-04-25 10:02 | disposition home or self-care (01) ==
LOC: SDC-PAIN 07:37
PROVIDERS: ATTEND Psychiatry & Neurology Pain Medicine
DX: M70.51 Other bursitis of knee, right knee (principal); E11.9 Type 2 diabetes mellitus without complications; Z79.899 Other long term (current) drug therapy
CPT/HCPCS: 20610; 82947; J1030; J2704

== ENCOUNTER 2023-09-26 06:55 | Day surgery (SDC) | payer OTHER ==
[2023-09-26] MEDS ORDERED: GELSYN-3 IU ONE (06:56)
[2023-09-26] MEDS ORDERED: DIPRIVAN 200 MG/20 ML IV ONE (08:40)
[2023-09-26] MEDS ORDERED: Lactated Ringers 1,000 ML IV ONE (10:32)
--- NOTE | 2023-09-26 11:47 | XRAY ---
Indication: Right knee injection. Intraoperative fluoroscopy provided for 45 seconds. Single digital spot image submitted for interpretation demonstrates needle tip projecting over the right femur intercondylar notch. Small amount of contrast injected for needle tip placement. Correlate with intraoperative findings/report.
--- NOTE | 2023-09-26 11:50 | XRAY ---
45 seconds of fluoroscopy was used in surgery for a right intra-articular knee injection.
== END 2023-09-26 09:06 | disposition home or self-care (01) ==
LOC: SDC-PAIN 06:55
PROVIDERS: ATTEND Psychiatry & Neurology Pain Medicine
DX: M17.11 Unilateral primary osteoarthritis, right knee (principal); E11.9 Type 2 diabetes mellitus without complications
CPT/HCPCS: 20610; 73560; 77002; 82947; J2704; J7328; Q9966

== ENCOUNTER 2023-10-03 06:48 | Day surgery (SDC) | payer OTHER ==
[2023-10-03] MEDS ORDERED: SYNVISC 16 MG/2 ML SYRINGE IU ONE (06:49)
[2023-10-03] MEDS ORDERED: DIPRIVAN 200 MG/20 ML IV ONE (08:18)
[2023-10-03] MEDS ORDERED: Lactated Ringers 1,000 ML IV ONE (10:54)
--- NOTE | 2023-10-03 11:26 | XRAY ---
Indication: Right knee injection. Intraoperative fluoroscopy provided for 5 seconds. Single digital spot image submitted for interpretation demonstrates needle tip projecting over the right femur intercondylar notch. Small amount of contrast injected for needle tip placement. Correlate with intraoperative findings/report.
--- NOTE | 2023-10-03 11:28 | XRAY ---
5 seconds of fluoroscopy was used in surgery for a right intra-articular knee injection.
== END 2023-10-03 08:41 | disposition home or self-care (01) ==
LOC: SDC-PAIN 06:48
PROVIDERS: ATTEND Psychiatry & Neurology Pain Medicine
DX: M17.11 Unilateral primary osteoarthritis, right knee (principal); E11.9 Type 2 diabetes mellitus without complications; Z79.899 Other long term (current) drug therapy
CPT/HCPCS: 20610; 73560; 77002; 82947; J2704; J7325; Q9966

== ENCOUNTER 2023-11-07 06:56 | Day surgery (SDC) | payer OTHER ==
[2023-11-07] MEDS ORDERED: GELSYN-3 IU ONE (06:57)
[2023-11-07] MEDS ORDERED: DIPRIVAN 200 MG/20 ML IV ONE (08:23)
--- NOTE | 2023-11-07 10:05 | XRAY ---
Indication: Right knee injection. Intraoperative fluoroscopy provided for 6 seconds. Single digital spot image submitted for interpretation demonstrates needle tip projection over the right femur intercondylar notch. Small amount of contrast injected for needle tip placement. Correlate with intraoperative findings/report.
--- NOTE | 2023-11-07 10:44 | XRAY ---
6 seconds of fluoroscopy was used in surgery for a right intra-articular knee injection.
== END 2023-11-07 08:50 | disposition home or self-care (01) ==
LOC: SDC-PAIN 06:56
PROVIDERS: ATTEND Psychiatry & Neurology Pain Medicine
DX: M17.11 Unilateral primary osteoarthritis, right knee (principal); M25.561 Pain in right knee; E11.9 Type 2 diabetes mellitus without complications
CPT/HCPCS: 20610; 73560; 76942; 77002; 82947; J2704; J7328; Q9966

== ENCOUNTER 2024-02-20 09:34 | Day surgery (SDC) | payer OTHER ==
[2024-02-20] MEDS ORDERED: LIDOCAINE HCL 1% 50 MG/5 ML VL PF IJ ONE (09:35)
[2024-02-20] MEDS ORDERED: BUPIVACAINE 0.5% VIAL IJ ONE (09:35)
[2024-02-20] MEDS ORDERED: Depo-Medrol 40 MG/ML IM ONE (09:35)
[2024-02-20] MEDS ORDERED: DIPRIVAN 200 MG/20 ML IV ONE (11:10)
[2024-02-20] MEDS ORDERED: Lactated Ringers 1,000 ML IV ONE (11:42)
--- NOTE | 2024-02-20 12:56 | XRAY ---
Indication: Right L4-S1 RFA. Intraoperative fluoroscopy provided for 21 seconds. 3 digital spot images submitted for interpretation demonstrates posterior needle tip projecting over right L4-S1 nerve roots. Correlate with intraoperative findings/report.
--- NOTE | 2024-02-20 12:56 | XRAY ---
21 seconds of fluoroscopy was used in surgery for a right L4-S1 RFA.
== END 2024-02-20 11:44 | disposition home or self-care (01) ==
LOC: SDC-PAIN 09:34
PROVIDERS: ATTEND Psychiatry & Neurology Pain Medicine
DX: M47.816 Spondylosis without myelopathy or radiculopathy, lumbar region (principal); E11.9 Type 2 diabetes mellitus without complications
CPT/HCPCS: 64635; 64636; 72100; 77002; 82947; J1030; J2001; J2704

== ENCOUNTER 2024-03-05 06:50 | Day surgery (SDC) | payer OTHER ==
[2024-03-05] MEDS ORDERED: BUPIVACAINE 0.5% VIAL IJ ONE (06:51)
[2024-03-05] MEDS ORDERED: LIDOCAINE HCL 1% 50 MG/5 ML VL PF IJ ONE (06:51)
[2024-03-05] MEDS ORDERED: Depo-Medrol 40 MG/ML IM ONE (06:51)
[2024-03-05] MEDS ORDERED: DIPRIVAN 200 MG/20 ML IV ONE ×2 (08:09→08:21)
[2024-03-05] MEDS ORDERED: Xylocaine-Mpf 2% 5 Ml Vial ONE (08:10)
[2024-03-05] MEDS ORDERED: Lactated Ringers 1,000 ML IV ONE (09:16)
--- NOTE | 2024-03-05 12:20 | XRAY ---
Indication: Left L4-S1 RFA. Intraoperative fluoroscopy provided for 43 seconds. 3 digital spot image submitted for interpretation demonstrates posterior needle tips projecting over the expected left L4-S1 nerve roots. Correlate with intraoperative findings/report.
--- NOTE | 2024-03-05 12:33 | XRAY ---
43 seconds of fluoroscopy was used in surgery for a left L5-L6-S1 RFA.
== END 2024-03-05 08:50 | disposition home or self-care (01) ==
LOC: SDC-PAIN 06:50
PROVIDERS: ATTEND Psychiatry & Neurology Pain Medicine
DX: M47.816 Spondylosis without myelopathy or radiculopathy, lumbar region (principal); E11.9 Type 2 diabetes mellitus without complications
CPT/HCPCS: 64635; 64636; 72100; 77002; 82947; J1010; J2001; J2704

== ENCOUNTER 2024-04-30 08:56 | Day surgery (SDC) | payer OTHER ==
[2024-04-30] MEDS ORDERED: DIPRIVAN 200 MG/20 ML IV ONE (10:38)
--- NOTE | 2024-04-30 12:08 | XRAY ---
Indication: Right ankle injection. Intraoperative fluoroscopy provided for 7 seconds. Single digital spot image submitted for interpretation demonstrates needle tip projecting over the left talotibial articulation. Small amount of contrast injected for needle tip placement. Correlate with intraoperative findings/report.
[2024-04-30] MEDS ORDERED: DEXMEDETOMIDINE 80 MCG/20ML-NS IV ONE (12:11)
--- NOTE | 2024-04-30 13:15 | XRAY ---
7 seconds of fluoroscopy was used in surgery for a right intra-articular ankle injection.
[2024-04-30] MEDS ORDERED: Lactated Ringers 1,000 ML IV ONE (15:03)
== END 2024-04-30 11:05 | disposition home or self-care (01) ==
LOC: SDC-PAIN 08:56
PROVIDERS: ATTEND Psychiatry & Neurology Pain Medicine
DX: M19.071 Primary osteoarthritis, right ankle and foot (principal); E11.9 Type 2 diabetes mellitus without complications
CPT/HCPCS: 20610; 73600; 77002; 82947; J2704; Q9966

== ENCOUNTER 2024-09-24 09:47 | Day surgery (SDC) | payer OTHER ==
[2024-09-24] MEDS ORDERED: GELSYN-3 IU ONE (09:48)
[2024-09-24] MEDS ORDERED: DIPRIVAN 200 MG/20 ML IV ONE (11:58)
--- NOTE | 2024-09-24 13:47 | XRAY ---
Indication: Right knee injection. Intraoperative fluoroscopy provided for 6 seconds. Single digital spot image submitted for interpretation demonstrates needle tip projecting over the left femur intercondylar notch. Small amount of contrast injected for needle tip placement. Correlate with intraoperative findings/report.
--- NOTE | 2024-09-24 14:53 | XRAY ---
6 seconds of fluoroscopy was used in surgery for a right intra-articular knee injection.
== END 2024-09-24 12:35 | disposition home or self-care (01) ==
LOC: SDC-PAIN 09:47
PROVIDERS: ATTEND Psychiatry & Neurology Pain Medicine
DX: M17.11 Unilateral primary osteoarthritis, right knee (principal); E11.9 Type 2 diabetes mellitus without complications
CPT/HCPCS: 73560; 77002; 82947; J2704; J7328

== ENCOUNTER 2024-10-01 07:48 | Day surgery (SDC) | payer OTHER ==
[2024-10-01] MEDS ORDERED: BUPIVACAINE 0.5% VIAL IJ ONE (07:49)
[2024-10-01] MEDS ORDERED: GELSYN-3 IU ONE (07:49)
[2024-10-01] MEDS ORDERED: DIPRIVAN 200 MG/20 ML IV ONE (09:09)
--- NOTE | 2024-10-01 10:29 | XRAY ---
Indication: Right knee injection Intraoperative fluoroscopy provided for 7 seconds. Single digital spot image submitted for interpretation demonstrates needle tip projecting over right femur intercondylar notch. Small amount of contrast injected for needle tip placement. Correlate with intraoperative findings/report.
--- NOTE | 2024-10-01 11:31 | XRAY ---
7 seconds of fluoroscopy was used in surgery for a right intra-articular knee injection.
== END 2024-10-01 09:33 | disposition home or self-care (01) ==
LOC: SDC-PAIN 07:48
PROVIDERS: ATTEND Psychiatry & Neurology Pain Medicine
DX: M17.11 Unilateral primary osteoarthritis, right knee (principal); E11.9 Type 2 diabetes mellitus without complications
CPT/HCPCS: 20610; 73560; 77002; 77003; 82947; J2704; J7328; Q9966

== ENCOUNTER 2024-10-08 07:25 | Day surgery (SDC) | payer OTHER ==
[2024-10-08] MEDS ORDERED: BUPIVACAINE 0.5% VIAL IJ ONE (07:26)
[2024-10-08] MEDS ORDERED: GELSYN-3 IU ONE (07:26)
[2024-10-08] MEDS ORDERED: DIPRIVAN 200 MG/20 ML IV ONE (09:18)
--- NOTE | 2024-10-08 13:03 | XRAY ---
Indication: Right knee injection. Intraoperative fluoroscopy provided for 8 seconds. Single digital spot image submitted for interpretation demonstrates needle tip projecting over right femur intercondylar notch. Small amount of contrast injected for needle tip placement. Correlate with intraoperative findings/report.
--- NOTE | 2024-10-08 13:11 | XRAY ---
8 seconds of fluoroscopy was used in surgery a right intra-articular knee injection.
== END 2024-10-08 09:43 | disposition home or self-care (01) ==
LOC: SDC-PAIN 07:25
PROVIDERS: ATTEND Psychiatry & Neurology Pain Medicine
DX: M17.11 Unilateral primary osteoarthritis, right knee (principal); E11.9 Type 2 diabetes mellitus without complications
CPT/HCPCS: 20610; 73560; 77002; 82947; J2704; J7328; Q9966

== ENCOUNTER 2024-12-10 07:48 | Day surgery (SDC) | payer OTHER ==
[2024-12-10] MEDS ORDERED: LIDOCAINE HCL 2% 100 MG/5 ML IJ ONE (07:49)
[2024-12-10] MEDS ORDERED: propofoL IV ONE (09:17)
--- NOTE | 2024-12-10 10:42 | XRAY ---
Indication: Left C2-C4 MBB. Intraoperative fluoroscopy provided for 16 seconds. 2 digital spot image submitted for interpretation demonstrates posterior needle tips projecting over expected left C2-C4 nerve roots. Correlate with intraoperative findings/report.
--- NOTE | 2024-12-10 10:50 | XRAY ---
16 seconds of fluoroscopy was used in surgery for a left C2-C4 MBB.
== END 2024-12-10 09:45 | disposition home or self-care (01) ==
LOC: SDC-PAIN 07:48
PROVIDERS: ATTEND Psychiatry & Neurology Pain Medicine
DX: M47.812 Spondylosis without myelopathy or radiculopathy, cervical region (principal); E11.9 Type 2 diabetes mellitus without complications
CPT/HCPCS: 64490; 64491; 72040; 77002; 82947; J2704

== ENCOUNTER 2025-02-24 06:07 | Day surgery (SDC) | payer OTHER ==
[2025-02-24] MEDS ORDERED: Epinephrine Preservative Free 1 MG/ML ONE ×2 (06:15→08:07)
[2025-02-24] MEDS: TYLENOL EXTRA STRENGTH 500 MG PO ONE (06:17)
[2025-02-24] MEDS: celeBREX 100 MG PO ONE (06:17)
[2025-02-24] MEDS: Decadron 4 MG PO ONE (06:18)
[2025-02-24] MEDS: NEURONTIN PO ONE (06:18)
[2025-02-24] MEDS: Lactated Ringers 1,000 ML IV SCH (06:18)
[2025-02-24] MEDS: CEFAZOLIN 2 GM/100 ML NaCl 2 GM/100 ML IVPB IV SCH (06:18)
[2025-02-24] MEDS: Pepcid 20 MG VIAL IV ONE (06:30)
[2025-02-24 06:34] LABS: Hematocrit 53.9 % (34.1-44.9); Mean Cell Volume 93.1 fL (79.4-94.8); Mean Corpuscular Hemoglobin 31.1 pg (25.6-32.2); Mean Corpuscular Hgb Concent. 33.4 g/dL (32.2-35.5); Mean Platelet Volume 9.3 fL (9.4-12.3); Platelet Count 231 x10^3/uL (182-369); Red Blood Count 5.79 x10^6/uL (3.93-5.22); Red Cell Distribution Width 15.6 % (11.7-14.4); White Blood Count 13.3 x10^3/uL (3.98-10.04)
[2025-02-24] MEDS ORDERED: Marcaine Mpf 0.5% Vial 30 Ml ONE (06:57)
[2025-02-24] MEDS ORDERED: EXPAREL 133 MG/10 ML VIAL IJ ONE (06:58)
[2025-02-24 06:59] LABS: ALBUMIN 4.2 g/dL (3.5-5.0); ANION GAP 13.2 MEQ/L (5-15); Calcium 8.6 mg/dL (8.4-10.2); Creatinine 1 0.57 mg/dL (0.52-1.04); Potassium 4.6 mmol/L (3.5-5.1); Total Protein 7.3 g/dL (6.3-8.2)
[2025-02-24] MEDS ORDERED: Xylocaine-Mpf 2% 5 Ml Vial ONE (07:01)
[2025-02-24] MEDS ORDERED: SUBLIMAZE 100 MCG/2 ML ONE (07:01)
[2025-02-24] MEDS ORDERED: Versed 2 MG/2 ML Injection ONE (07:02)
[2025-02-24] MEDS ORDERED: propofoL IV ONE (07:29)
[2025-02-24] MEDS ORDERED: ROCURONIUM BROMIDE IV ONE ×2 (07:31→08:41)
[2025-02-24] MEDS ORDERED: Zofran 4 MG/2 ML VIAL ONE (07:53)
[2025-02-24] MEDS ORDERED: BRIDION 200MG/2ML IV ONE (07:53)
[2025-02-24] MEDS ORDERED: PHENYLEPHRINE HCL ONE (07:56)
[2025-02-24] MEDS ORDERED: Lactated Ringers 1,000 ML IV ONE (08:33)
--- NOTE | 2025-02-24 09:16 | XRAY ---
Indication: Right ankle arthroscopy, medial gutter impingement release, deltoid ligament repair, lateral ankle stabilization, and osteochondral repair. Intraoperative fluoroscopy provided for 1 minute 43 seconds. Numerous digital spot and cine images submitted for interpretation demonstrates instrumentation anterior, medial, and lateral ankle joint. Correlate with intraoperative findings/report.
[2025-02-24 11:19] VITALS: RESP 18
[2025-02-24 11:28] VITALS: PULSE 79
[2025-02-24 11:52] VITALS: BP 98/75; TEMP 96.9; O2SAT 93
--- NOTE | 2025-02-24 12:12 | XRAY ---
One minute and 43 seconds of fluoroscopy was used in surgery for a right ankle arthroscopy, medial gutter impingement release, deltoid ligament repair, lateral ankle stabilization, and osteochondral repair.
--- NOTE | 2025-02-25 10:37 | OP ---
SURGERY DATE/TIME: 02/24/2025 [id number] PREOPERATIVE DIAGNOSES: 1) Right ankle pain. 2) Ankle synovitis. 3) Lateral ankle instability. 4) Deltoid insufficiency. 5) Difficulty with ambulation. POSTOPERATIVE DIAGNOSES: 1) Right ankle pain. 2) Ankle synovitis. 3) Lateral ankle instability. 4) Deltoid insufficiency. 5) Difficulty with ambulation. 6) Fibular exostosis. PROCEDURES: 1) Ankle arthroscopy with complete synovectomy. 2) Lateral ankle stabilization with Brostrom-Montoya and internal brace. 3) Deltoid ligament repair. 4) Fibular exostectomy. SURGEON: German Lynn DPM ASSISTANTS: ELSIE Major and Nusrat Zhang, Certified Surgical Commercial Real Estate Assistant ANESTHESIA: General, with a preoperative popliteal and saphenous block. See anesthesia report for details. HEMOSTASIS: Thigh tourniquet set to 300 mmHg for a total of 55 total tourniquet minutes. ESTIMATED BLOOD LOSS: Approximately 10 mL. MATERIALS: 4-0 Monocryl; 3-0 nylon; one 2.9 JuggerKnot to a 2.9 Betta Link; two 1.45 JuggerKnots with BroadBand for lateral ankle stabilization; and then two 1.45 JuggerKnots for medial deltoid repair, superficial deltoid. INJECTABLES: See anesthesia report for details. INDICATIONS: The patient is a very pleasant 59-year-old female who presented to my service for pain to the right ankle that had been ongoing for a number of years. The patient had surgical intervention with another provider, which seemingly went well initially. However, there was some medial ankle pain that did return after a short period of time of the procedure and has progressively been getting worse as time has gone one. MRI was obtained demonstrating lateral ankle ligament instability as well as deltoid insufficiency. From that standpoint, no obvious osteochondral defects were encountered; however, a significant amount of joint effusion was seen on the MRI. From that standpoint, decision was made to proceed with surgical intervention. All risks, complications, and benefits of surgical intervention at this time including, but not limited to, infection, hematoma, seroma, possibility of delayed wound healing, non-wound healing, and possible failure of surgical intervention were discussed. Plenty of time was allowed for the patient to ask questions, which were answered to her apparent satisfaction. It is at this time we decided to proceed. No guarantees were provided as to the outcome of surgical intervention. Plenty of time as allowed for the patient to ask questions. It is at this time we decided to proceed. DESCRIPTION OF PROCEDURE AND FINDINGS: Patient was brought into the PACU prior to the procedure and provided a popliteal and saphenous block. See anesthesia report for details. At this time, patient was brought into the operating room and placed on the operating room table in the supine position. At this time, general anesthesia was administered until the patient was adequately sedated. A well-padded thigh tourniquet was applied to the patient's right thigh, and the tourniquet was set to 300 mmHg. The right lower extremity was prepped and draped in the typical sterile fashion and lowered onto the surgical field. At this time, attention was directed to the medial malleolus, lateral malleolus, and the palpable dell at the anterior aspect of the ankle at the level of the talus. Landmarks were identified and lines were drawn in between, identifying the anteromedial aspect of the ankle joint and the anterolateral aspect of the ankle joint where the portals were to be established. These were drawn based on these landmarks. An 18-gauge needle with 50 mL of lactated Ringer's was then introduced into the joint and the joint was insufflated. Once the joint was insufflated, an 11 blade was utilized to make an incision at the level of the anteromedial ankle portal. Once this was performed, a curved mini hemostat was introduced, puncturing the capsule of the ankle joint. Once this was performed, blunt obturator and trocar were introduced. The obturator was then removed, and a 4.0 mm x 30-degree camera was introduced. Joint inspection took place, demonstrating some crabmeat and hemorrhagic synovitis. Once this was identified, decision was made to proceed with the debridement. A 3.4 mm curved arthroscopic shaver was then introduced into the anterolateral portal after making a stab incision utilizing an 11 blade and going down to level of capsule utilizing a curved mini. Once this was performed, a synovectomy was performed utilizing the 3.4 mm shaver. Once majority of the synovitis was removed from particularly the lateral and the medial capsules, the gutter was inspected. There was a significant amount of delaminated cartilage, however no significant obstructions within that medial gutter. The remaining synovitis was then debrided from the sites. A probe was utilized to test the integrity of the cartilage which was seemingly intact; however, there were some areas of subchondral partial-thickness cartilage loss. From that standpoint, decision was made to not go after any of the lost cartilage due to the fact that the subchondral bone was intact. At this time, the scope was reversed from the portal sites, and remaining synovitis was then debrided. At this time, an Esmarch was utilized to exsanguinate the leg, and under fluoroscopic guidance, stress views were obtained demonstrating a positive talar tilt and anterior drawer, as well as deltoid insufficiency. Decision was made at this time to go after the lateral ankle ligament instability where a linear incision was carried down from approximately 3 cm above the distal tip of the fibula to the anterior process of the calcaneus. Careful dissection was carried down to the level of bone, reflecting the anterior talofibular ligament as well as CFL ligament and reflecting this distally. It was at this time it was noted that there was an accessory bone or old fracture that had healed in an abnormal position on the fibula, which was resected utilizing a rongeur just above the footprint of the ATFL in an area where the patient was having some pain. Once we resected, the 2.9 JuggerKnot was anchored into the palpable dell at the lateral aspect of the body and the neck of the talus. Once this was performed, it was checked on multiple views, making sure not to damage or violate the tibiotalar or the subtalar joints. Once this was introduced, the foot was held in a dorsiflexed and everted position while this was held under minimal tension, anchoring the internal brace to a 2.9 Betta Link. Following this, proximal and distal to the site of anchoring the Betta Link into the fibula, a 1.45 JuggerKnot was introduced, and the repair of the ATFL as well as the CFL ligaments was performed per swimming pool service technician specifications. From that standpoint, given there was still some laxity of the soft tissue, the decision was made to include a Montoya modification by freeing up a portion of the inferior extensor retinaculum and reefing this up into the repair. Stress views were once again taken. From that standpoint, anterior drawer and talar tilt were significantly improved. Once this was deemed adequate, the deltoid stress was performed. As far as the deep deltoid, it did appear to be significantly improved; however, with rotational instability, the superficial deltoid was deemed to be somewhat incompetent. Decision was made at this time to go forward with the deltoid repair and not reconstruction. A linear incision was made at the medial aspect at the anterior colliculus of the medial malleolus. Once this was performed, careful dissection was carried down to the level of the bone and the deltoid ligament where a small cuff of the deltoid was left intact and then resected exposing the medial wall of the talus. Once this was performed, the small ridge of remaining deltoid was removed off the distal aspect of the medial malleolus. Two 1.45 JuggerKnots were with BroadBand were then introduced into the medial malleolus, checked on both the lateral and the mortise view making sure not to violate the joint surface. Once this was performed, the deltoid ligament was repaired in a [id number]-type technique. Once this was performed, the deltoid ligament was then once again stressed in rotational stability as well as frontal plane stability of which was significantly improved at this time. Copious amounts of sterile saline were utilized to flush the surgical sites. A 4-0 Monocryl was utilized to coapt the subcutaneous skin edges in a simple buried interrupted-type fashion, and then 3-0 nylon was utilized in a horizontal mattress-type fashion to tayler the skin edges. A dressing consisting of Betadine, Adaptic, 4 x 4, Kerlix, ABD, and a well-padded posterior splint with sugar tong was applied to the patient's right lower extremity with the foot orthogonal relative to longitudinal axis of the leg. Patient then was reversed from anesthesia and returned to the postoperative anesthesia care unit with vital signs stable and vascular status intact. Patient handled the anesthesia as well as the procedure without significant complication. Postoperative orders as indicated in the patient's discharge chart.
== END 2025-02-24 11:55 | disposition home or self-care (01) ==
LOC: SDC 06:07
PROVIDERS: ATTEND Podiatrist Foot & Ankle Surgery
DX: M65.871 Other synovitis and tenosynovitis, right ankle and foot (principal); M25.571 Pain in right ankle and joints of right foot; M25.371 Other instability, right ankle; R26.2 Difficulty in walking, not elsewhere classified; S93.422A Sprain of deltoid ligament of left ankle, initial encounter; M89.8X6 Other specified disorders of bone, lower leg; E11.9 Type 2 diabetes mellitus without complications
CPT/HCPCS: 27635; 27695; 27698; 29898; 36415; 73610; 76000; 80053; 82947; 85027; 93005; C1713; J0171; J0666; J0690; J2250; J2371; J2405; J2704; J3010; A9270-GY

== ENCOUNTER 2025-02-24 18:08 | Emergency (ER) | payer OTHER ==
[2025-02-24 18:39] VITALS: TEMP 97.3
--- NOTE | 2025-02-24 18:39 | ERPHSYRPT ---
- History of Present Illness Time Seen by Provider: 02/24/25 18:35 Source: patient Exam Limitations: no limitations Physician History: 59-year-old female postop day 0 presents to our ED for evaluation of her surgical site. Patient reports that she has observed a small amount of blood soaking through her Kayode wrap. Patient had a ankle scope and tendon repairs. Patient's had a nerve block and therefore is unable to move her toes as this is expected post nerve block. Additionally patient reports that her right ribs are sore. Patient reports her grandson tried helping her into her home. He bearhug bear squeezed onto her ribs and she felt a pain sensation at her right rib. Pain worse with movement and palpation. No associated chest pain or shortness of breath. No nausea vomiting or diaphoresis. Patient otherwise feels well. She voices no other complaints or concerns at this time. Patient declined pain medication Portions of this note were created with voice recognition technology. There may be grammatical, spelling, punctuation or sound alike errors Timing/Duration: today Severity: moderate Associated Symptoms: nausea Allergies/Adverse Reactions: bee venom protein (honey bee) Allergy (Verified 02/24/25 18:18) benztropine [From Cogentin] Allergy (Verified 02/24/25 18:18) Home Medications: Albuterol Common Canister [Ventolin Common Canister] 2 puff IH Q6HPRN PRN 04/12/22 [History] Apixaban [Eliquis 5 mg Tablet] 5 mg PO BID 04/12/22 [History] Diphenoxylate HCl/Atropine [Lomotil] 1 udtab PO Q4HPRN PRN 04/12/22 [History] Fluticasone/Umeclidin/Vilanter [Trelegy Ellipta 100-62.5-25] 1 puff IH DAILY 04/12/22 [History] Gabapentin [Neurontin] 600 mg PO TID 04/12/22 [History] Insulin Glargine [Lantus Insulin] 15 unit SQ HS 04/12/22 [History] Loratadine 10 mg [Claritin 10 mg] 10 mg PO DAILY 04/12/22 [History] Oxycodone / APAP 10/325 mg [Oxycodone-Acetaminophen 10-325] 1 tab PO BID PRN 04/12/22 [History] Tizanidine HCl 4 mg [Zanaflex 4 MG] 4 mg PO DAILY 04/12/22 [History] Trazodone HCl 300 mg PO HS 04/12/22 [History] glipiZIDE [Glipizide ER] 10 mg PO DAILY 04/12/22 [History] Albuterol 8 gm Mdi Hfa [Ventolin Hfa MDI] 8 gm IH Q6HPRN PRN 02/05/25 [History] Alendronate Sodium 70 mg [Fosamax 70 MG] 70 mg PO Q7D@0600 02/05/25 [History] Atorvastatin Calcium 40 mg PO DAILY 02/05/25 [History] Benzonatate 100 mg PO Q8H PRN PRN 02/05/25 [History] Buspirone HCl 5 mg [Buspar 5 mg] 15 mg PO TID 02/05/25 [History] Butalbit/Acetamin/Caff/Codeine [Ecfdmo-Lrusldta-Avq-Cod 50-300] 1 each PO UD PRN 02/05/25 [History] Dulaglutide [Trulicity] 4.5 mg SQ WEEKLY 02/05/25 [History] EPINEPHrine [Epipen 2-Abdiel] 0.3 mg IM UD PRN 02/05/25 [History] Ezetimibe 10 mg [Zetia 10 MG] 10 mg PO DAILY 02/05/25 [History] Famotidine 40 mg PO HS 02/05/25 [History] Furosemide [Lasix] 20 mg PO DAILY 02/05/25 [History] Lumateperone Tosylate [Caplyta] 42 mg PO DAILY 02/05/25 [History] Montelukast Sodium 10 mg [Singulair 10 MG] 10 mg PO DAILY 02/05/25 [History] Ondansetron [Ondansetron Odt] 4 mg PO Q6H PRN PRN 02/05/25 [History] PANTOPRAZOLE 40 mg Tablet [Protonix 40MG Tablet] 40 mg PO DAILY 02/05/25 [History] Ropinirole HCl 3 mg PO HS 02/05/25 [History] Vilazodone HCl 40 mg PO DAILY 02/05/25 [History] atenoloL [Atenolol] 25 mg PO DAILY 02/05/25 [History] hydrOXYzine HCL [Hydroxyzine HCl] 50 mg PO TID 02/05/25 [History] Hx Tetanus, Diphtheria Vaccination/Date Given: Yes Hx Influenza Vaccination/Date Given: Yes Hx Pneumococcal Vaccination/Date Given: Yes Travel Risk - Emerging Infectious Disease Are you exhibiting symptoms associated with any current EIDs: No - Review of Systems Constitutional: No Symptoms, No Fever, No Chills Eyes: No Symptoms Ears, Nose, & Throat: No Symptoms Respiratory: No Symptoms, No Cough, No Dyspnea Cardiac: No Symptoms, No Chest Pain, No Edema, No Syncope Abdominal/Gastrointestinal: No Symptoms, No Abdominal Pain, No Nausea, No Vomiting, No Diarrhea Genitourinary Symptoms: No Symptoms, No Dysuria Musculoskeletal: No Symptoms, No Back Pain, No Neck Pain Skin: No Symptoms, No Rash Neurological: No Symptoms, No Dizziness, No Focal Weakness, No Sensory Changes Psychological: No Symptoms Endocrine: No Symptoms Hematologic/Lymphatic: No Symptoms Immunological/Allergic: No Symptoms All Other Systems: Reviewed and Negative - Past Medical History Pertinent Past Medical History: Yes Neurological History: Migraines, Peripheral Neuropathy ENT History: Cataracts Cardiac History: Arrhythmia, High Cholesterol, Myocardial Infarction ([place]), Other Respiratory History: Asthma, COPD, Pneumonia, Sleep Apnea Endocrine Medical History: Diabetes Type II Musculoskeletal History: No Pertinent History, Arthritis, Degenerative Disk Disease, Fibromyalgia, Fractures, Osteoporosis GI Medical History: GERD, Hernia History: No Pertinent History Psycho-Social History: Anxiety, Depression, Panic Disorder Female Reproductive Disorders: No Pertinent History Other Medical History: svt - Past Surgical History Past Surgical History: Yes Neuro Surgical History: No Pertinent History Cardiac: Other Respiratory: Other Gastrointestinal: Appendectomy, Cholecystectomy, Hernia Repair Genitourinary: No Pertinent History Musculoskeletal: No Pertinent History, Orthopedic Surgery Female Surgical History: Hysterectomy Other Surgical History: svt correction, pin in R ankle and ligament repair, ablation for afib - Social History Smoking Status: Current every day smoker - Nursing Vital Signs Nursing Vital Signs: Initial Vital Signs Temperature 97.3 F 02/24/25 18:18 Pulse Rate 84 02/24/25 18:18 Respiratory Rate 16 02/24/25 18:18 Blood Pressure 93/59 02/24/25 18:18 O2 Sat by Pulse Oximetry 93 L 02/24/25 18:18 Pain Scale Pain Intensity 6 - Physical Exam General Appearance: no apparent distress, alert Eye Exam: PERRL/EOMI, eyes nml inspection Ears, Nose, Throat Exam: normal ENT inspection, moist mucous membranes Neck Exam: normal inspection, non-tender, supple, full range of motion Respiratory Exam: normal breath sounds, lungs clear, airway intact, other (Tenderness to palpation right rib. Palpation reproduces patient's pain. Ribs 7 8 and 9 appear to be the most tender. Overlying soft tissue intact.), No respiratory distress Cardiovascular Exam: regular rate/rhythm, normal heart sounds, normal peripheral pulses Gastrointestinal/Abdomen Exam: soft, normal bowel sounds, No tenderness, No mass Back Exam: normal inspection, normal range of motion, No CVA tenderness, No vertebral tenderness Extremity Exam: normal inspection, normal range of motion, pelvis stable Neurologic Exam: alert, oriented x 3, cooperative, normal mood/affect, nml cerebellar function, nml station & gait, sensation nml, No motor deficits Skin Exam: normal color, warm, dry, No rash Lymphatic Exam: No adenopathy SpO2 Interpretation: normal O2 Delivery: Room Air - Course Nursing assessment & vital signs reviewed: Yes EKG Interpreted by Me: RATE (76), Sinus Rhythm, NORMAL AXIS, NORMAL INTERVALS, NORMAL QRS Ordered Tests: Active Orders 24 hr Category Date Time Status CHEST 1 VIEW (PORTABLE) Stat Exams 02/24/25 18:31 Taken RIBS UNILATERAL Stat Exams 02/24/25 18:31 Taken Medication Summary Discontinued Medications Generic Name Dose Route Start Last Admin Trade Name Freq PRN Reason Stop Dose Admin Ketorolac Tromethamine 30 mg 02/24/25 19:21 02/24/25 19:31 Ketorolac Tromethamine 30 Mg/Ml Inj IV 02/24/25 19:22 30 mg STAT ONE Administration Ketorolac Tromethamine Confirm 02/24/25 19:26 Ketorolac Tromethamine 30 Mg/Ml Inj Administered 02/24/25 19:27 Dose 30 mg .ROUTE .STK-MED ONE - Progress Progress: improved Progress Note: 59-year-old female presents to our ED for evaluation of postoperative bleeding. Patient reports she observed blood at the lateral aspect of her right ankle. Patient had knee arthroscopy and tendon repair. I spoke to patient's coagulating bath mixer at 6:35 PM. He advised to reinforce the dressing. No need to take the dressing down. Patient unable to move toes he advised the secondary to the ongoing nerve block. Cap refill less than 2 seconds. Patient also advised that her right rib was hurting as her grandson bear hugged her to help her into the house. X-ray negative for fracture or dislocation. Dr. Sumner read the x-ray is atelectasis versus infiltrate however patient has no signs of pneumonia the findings are likely atelectasis. Screening EKG completed as well. No acute findings. No signs of ischemia. Patient denies chest pain. Patient received Toradol for pain control. Patient resting comfortably and states he is ready for discharge. No indication for further workup at this time. Will discharge home. at bedside. They voiced no other complaints or concerns at this time. Screening EKG reveals sinus rhythm rate 76. No ischemic changes no acute findings Patient advised that her coagulating bath mixer states that he will be available in his office tomorrow and or if she feels the need to come in for a recheck. Portions of this note were created with voice recognition technology. There may be grammatical, spelling, punctuation or sound alike errors Complexity of problem addressed is moderate acute complicated no critical care time. Complexity of data reviewed and analyzed as extensive. Test ordered test reviewed results analyzed and correlated clinically with history and physical exam. Management discussed with patient's coagulating bath mixer/surgeon. Risk of complication and or risk of morbidity/mortality of patient management is low. Vital stable. Time spent to discharge patient is approximately 10 minutes. Plan of care established for shared decision making. No social determinants of health present to impede follow-up Portions of this note were created with voice recognition technology. There may be grammatical, spelling, punctuation or sound alike errors 02/24/25 20:22 Counseled pt/family regarding: lab results, diagnosis, rad results - Departure Departure Disposition: Home Clinical Impression: Post-op bleeding, Contusion of rib on right side Condition: Stable Critical Care Time: No Referrals: TRISH CALVIN NP [Primary Care Provider] - Follow up/PCP as directed Additional Instructions: Discharge/Care Plan JUNE VASQUEZ was seen on 02/24/25 in the Emergency Room. The patient was counseled regarding Diagnosis,Lab results, Imaging studies, need for follow up and when to return to the Emergency Room. Prescriptions given: Discharge Note I have spoken with the patient and/or caregivers. I have explained the patient's condition, diagnosis and treatment plan based on the information available to me at this time. I have answered the patient's and/or caregiver's questions and addressed any concerns. The patient and/or caregivers have as good understanding of the patient's diagnosis, condition and treatment plan as can be expected at this point. The vital signs have been stable. The patient's condition is stable and appropriate for discharge from the emergency department. The patient will pursue further outpatient evaluation with the primary care physician or other designated or consulting physician as outlined in the discharge instructions. The patient and/or caregivers are agreeable to this plan of care and follow-up instructions have been explained in detail. The patient and/or caregivers have received these instruction. The patient/and or caregivers are aware that any significant change in condition or worsening of symptoms should prompt an immediate return to this or the closest emergency department or call 911.
[2025-02-24] MEDS ORDERED: TORAdol 30 mg Injection ONE (19:26)
[2025-02-24 19:31] VITALS: PULSE 76; RESP 18
[2025-02-24] MEDS: TORAdol 30 mg Injection IV ONE (19:31)
[2025-02-24 20:23] VITALS: BP 103/67; O2SAT 86
--- NOTE | 2025-02-25 08:40 | XRAY ---
Indication: Pain. Comparison: April 12, 2022 Portable chest again demonstrates chronic lung markings bilaterally. New mild bibasilar infiltrates/atelectasis without consolidation/large effusion. Heart not enlarged. Bony thorax intact again with osteopenia, degenerative changes, and old left humeral neck fracture.
--- NOTE | 2025-02-25 08:40 | XRAY ---
Indication: Pain. Comparison: None 2 view right ribs demonstrate osteopenia, old lateral 5/6 rib fractures, and mild double curvature thoracolumbar scoliosis. No other bony, articular, or soft tissue abnormalities. Chest reported separately.
== END 2025-02-24 20:40 | disposition home or self-care (01) ==
LOC: ED 18:08
DX: L76.22 Postprocedural hemorrhage of skin and subcutaneous tissue following other procedure (principal); S20.211A Contusion of right front wall of thorax, initial encounter; E78.5 Hyperlipidemia, unspecified; E11.42 Type 2 diabetes mellitus with diabetic polyneuropathy; Z79.01 Long term (current) use of anticoagulants; Z79.4 Long term (current) use of insulin; Z79.84 Long term (current) use of oral hypoglycemic drugs; Z79.85 Long-term (current) use of injectable non-insulin antidiabetic drugs; Z79.899 Other long term (current) drug therapy; Z72.0 Tobacco use
CPT/HCPCS: 71045; 71100; 93005; 96374; 99284; J1885

== ENCOUNTER 2025-06-18 07:56 | Day surgery (SDC) | payer OTHER ==
[2025-06-18] MEDS ORDERED: BUPIVACAINE 0.5% VIAL IJ ONE (07:57)
[2025-06-18] MEDS ORDERED: LIDOCAINE HCL 1% 50 MG/5 ML VL IJ ONE (07:57)
[2025-06-18] MEDS ORDERED: propofoL IV ONE (10:39)
[2025-06-18] MEDS ORDERED: Zofran 4 MG/2 ML VIAL ONE (10:46)
[2025-06-18] MEDS ORDERED: BENADRYL 50 MG/ML ONE (10:46)
[2025-06-18] MEDS ORDERED: DILAUDID 2 MG INJECTION ONE (10:49)
--- NOTE | 2025-06-18 12:14 | XRAY ---
Indication: Left C2-C4 RFA. Intraoperative fluoroscopy provided for 18 seconds. 3 digital spot image submitted for interpretation demonstrates posterior needle tips projecting over expected left C2-C4 nerve roots. Correlate with intraoperative findings/report.
[2025-06-18] MEDS ORDERED: Lactated Ringers 1,000 ML IV ONE (12:18)
--- NOTE | 2025-06-18 12:18 | XRAY ---
18 seconds of fluoroscopy was used in surgery for a left C2-C4 RFA.
== END 2025-06-18 11:30 | disposition home or self-care (01) ==
LOC: SDC-PAIN 07:56
PROVIDERS: ATTEND Psychiatry & Neurology Pain Medicine
DX: M47.812 Spondylosis without myelopathy or radiculopathy, cervical region (principal); E11.9 Type 2 diabetes mellitus without complications

== ENCOUNTER 2025-08-19 07:33 | Day surgery (SDC) | payer OTHER ==
[2025-08-19] MEDS ORDERED: BUPIVACAINE 0.5% VIAL IJ ONE (07:34)
[2025-08-19] MEDS ORDERED: methylPREDNISolone acetate IM ONE (07:34)
[2025-08-19] MEDS ORDERED: propofoL IV ONE (09:15)
[2025-08-19] MEDS ORDERED: Lactated Ringers 1,000 ML IV ONE (09:56)
--- NOTE | 2025-08-19 10:29 | XRAY ---
Indication: Right C2-C4 MBB. Intraoperative fluoroscopy provided for 12 seconds. 3 digital spot image submitted for interpretation demonstrates posterior needle tips projecting over expected right C2-C4 nerve roots. Correlate with intraoperative findings/report.
--- NOTE | 2025-08-19 13:08 | XRAY ---
12 seconds of fluoroscopy were used in surgery for a right C2-C4 MBB.
== END 2025-08-19 09:55 | disposition home or self-care (01) ==
LOC: SDC-PAIN 07:33
PROVIDERS: ATTEND Psychiatry & Neurology Pain Medicine
DX: M47.812 Spondylosis without myelopathy or radiculopathy, cervical region (principal); E11.9 Type 2 diabetes mellitus without complications